=== PATIENT | male | born 1985 | race Caucasian/White ===

== ENCOUNTER 2019-01-30 17:35 | Emergency (ER) | payer SELFPAY ==
[~2019-01-30] VITALS: Ht 170.2 cm; Wt 76.2 kg
[2019-01-30 17:39] VITALS: BP 133/76
--- NOTE | 2019-01-30 17:45 | NUR ---
PT AMBULATED TO BED 08
--- NOTE | 2019-01-30 17:46 | NUR ---
Patient ambulated to bed 8. RN evaluating patient at bedside.
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
--- NOTE | 2019-01-30 18:47 | NUR ---
PLACED ELENA WRAP ON PT AND SIZED CRUTCHES TO PT
[2019-01-30 18:48] VITALS: BP 133/76
== END 2019-01-30 18:34 | disposition home or self-care (01) ==
LOC: MED 17:35
DX: S93.401A Sprain of unspecified ligament of right ankle, initial encounter (principal); S16.1XXA Strain of muscle, fascia and tendon at neck level, initial encounter; W22.10XA Striking against or struck by unspecified automobile airbag, initial encounter; V49.49XA Driver injured in collision with other motor vehicles in traffic accident, initial encounter; Y93.89 Activity, other specified; Y92.488 Other paved roadways as the place of occurrence of the external cause; Y99.8 Other external cause status
CPT/HCPCS: 72040; 73610; 99283

== ENCOUNTER 2020-06-21 22:15 | Emergency (ER) | payer BC ==
[~2020-06-21] VITALS: Ht 170.2 cm; Wt 75.7 kg
[2020-06-21 22:18] VITALS: BP 143/94
--- NOTE | 2020-06-21 22:21 | NUR ---
PT OFFLOADED TO LOBBY AT THIS TIME.
--- NOTE | 2020-06-21 22:36 | NUR ---
AMBULATED TO ER BED 12 FROM [facility]
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
[2020-06-21 22:53] VITALS: BP 117/70
--- NOTE | 2020-06-21 22:53 | NUR ---
PATIENT LEFT WITHOUT BEING SEEN BY DR. OH. NO FURTHER CARE PROVIDED FOR PATIENT.
== END 2020-06-21 22:53 | disposition left against medical advice (07) ==
LOC: MED 22:15
DX: R00.2 Palpitations (principal); Z53.21 Procedure and treatment not carried out due to patient leaving prior to being seen by health care provider